=== PATIENT | female | born 1995 | race African-American/Black ===

== ENCOUNTER 2018-03-03 13:45 | Emergency (ER) | payer SELFPAY ==
--- NOTE | 2018-03-03 14:55 | ER ---
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 I don't remember hurting it but it started swelling when I got off work and it really hurts." Slight swelling noted to R ankle, pt ambulatory. Transition of care: patient was not received from another setting of care. Onset of symptoms was March 03, 2018. Risk Assessment: Do you want to hurt yourself or someone else? Patient reports no desire to harm self or others. Initial Sepsis Screen: Does the patient meet any 2 criteria? No. Patient's initial sepsis screen is negative. Does the patient have a suspected source of infection? No. Patient's initial sepsis screen is negative. Care prior to arrival: None. 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 - Social history:: Smoking status: Patient/guardian denies using tobacco. - Ebola Screening: : No symptoms or risks identified at this time. Vital Signs: 13:56 BP 125 / 70; Pulse 97; Resp 18; Temp 97.9; Pulse Ox 100% on R/A; Weight 67.13 kg; ph Height 5 ft. 7 in. (170.18 cm); Pain 7/10; 13:56 Body Mass Index 23.18 (67.13 kg, 170.18 cm) ph ED Course: 13:49 Patient arrived in ED. mr 13:50 Mesha Ovalle FNP-C [facility]. kb 13:50 Michele Coulter MD is Attending Physician. kb 13:51 Belkis Bowser, RN is Primary Nurse. ph 13:56 Triage completed. ph 13:57 Arm band placed on Patient placed in an exam room. ph Administered Medications: No medications were administered Outcome: 14:55 Patient left the ED. kb Signatures: Mesha Ovalle, GAS OPERATOR-C GAS OPERATOR-Sola Darnell mr Belkis Bowser, RN RN ph
--- NOTE | 2018-03-03 14:56 | EDPHYS ---
Physician Documentation [facility] Name: Princess Alcala Age: 22 yrs Sex: Female : 1995 Arrival Date: 03/03/2018 Time: 13:49 Bed 11 Private MD: ED Physician Michele Coulter HPI: 03/03 14:08 This 22 yrs old Black Female presents to ER via Ambulatory with complaints of Ankle kb Injury. 14:08 The patient presents with pain, that is acute. The complaints affect the right ankle. kb Onset: The symptoms/episode began/occurred last night. Context: The problem was sustained at home, resulted from an unknown cause, The mechanism of injury is unknown. The patient can fully bear weight on the affected extremity. the patient is able to ambulate. Associated signs and symptoms: Pertinent positives: swelling, Pertinent negatives: calf tenderness, fever, nausea, numbness, rash, tingling, vomiting, warmth, weakness. Modifying factors: The symptoms are alleviated by nothing, the symptoms are aggravated by weight bearing. Severity of symptoms: At their worst the symptoms were mild, in the emergency department the symptoms are unchanged. The patient has not experienced similar symptoms in the past. The patient has not recently seen a physician. 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 Reports swelling last night, resolved this morning. Pain better this morning as well. . 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 - Social history:: Smoking status: Patient/guardian denies using tobacco. - Ebola Screening: : No symptoms or risks identified at this time. ROS: 14:14 Constitutional: Negative for fever, chills, and weight loss, Neck: Negative for injury, kb pain, and swelling, Cardiovascular: Negative for chest pain, palpitations, and edema, Respiratory: Negative for shortness of breath, cough, wheezing, and pleuritic chest pain, Abdomen/GI: Negative for abdominal pain, nausea, vomiting, diarrhea, and constipation, Back: Negative for injury and pain, Skin: Negative for injury, rash, and discoloration, Neuro: Negative for headache, weakness, numbness, tingling, and seizure. 14:14 MS/extremity: Positive for pain. Exam: 14:14 Constitutional: This is a well developed, well nourished patient who is awake, alert, kb and in no acute distress. Head/Face: Normocephalic, atraumatic. Chest/axilla: Normal chest wall appearance and motion. Nontender with no deformity. No lesions are appreciated. Cardiovascular: Regular rate and rhythm with a normal S1 and S2. No gallops, murmurs, or rubs. Normal PMI, no JVD. No pulse deficits. Respiratory: Lungs have equal breath sounds bilaterally, clear to auscultation and percussion. No rales, rhonchi or wheezes noted. No increased work of breathing, no retractions or nasal flaring. Abdomen/GI: Soft, non-tender, with normal bowel sounds. No distension or tympany. No guarding or rebound. No evidence of tenderness throughout. Skin: Warm, dry with normal turgor. Normal color with no rashes, no lesions, and no evidence of cellulitis. Neuro: Awake and alert, GCS 15, oriented to person, place, time, and situation. Cranial nerves II-XII grossly intact. Motor strength 5/5 in all extremities. Sensory grossly intact. Cerebellar exam normal. Normal gait. 14:14 Musculoskeletal/extremity: Extremities: grossly normal except: noted in the anterior aspect of right ankle: pain, ROM: intact in all extremities, Circulation is intact in all extremities. Sensation intact. Weight bearing: able to fully bear weight. Vital Signs: 13:56 BP 125 / 70; Pulse 97; Resp 18; Temp 97.9; Pulse Ox 100% on R/A; Weight 67.13 kg; ph Height 5 ft. 7 in. (170.18 cm); Pain 7/10; 13:56 Body Mass Index 23.18 (67.13 kg, 170.18 cm) ph MDM: 13:55 Patient medically screened. kb 14:15 Data reviewed: vital signs, nurses notes. Data interpreted: Pulse oximetry: on room air kb is 100 %. Interpretation: normal. 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 kb "I'm just gonna go because I've been in there for like 40 minutes and nothing has happened." Educated that x-rays will be done as soon as possible, but pt states she is leaving. . Administered Medications: No medications were administered Disposition: 03/03/18 14:55 Patient left the facility after being seen by provider. Preliminary diagnosis is Pain in right ankle and joints of right foot. - Patient left due to (see nurse's notes). - Condition is Stable. Addendum: 03/07/2018 08:59 Co-signature as Attending Physician, Michele Coulter MD I agree with the assessment and c wallis plan of care. Signatures: Dispatcher [employer] EDMesha Hicks, STEERSMAN-C STEERSMAN-Michele Cotto MD MD cha Hall, Patricia, RN RN ph Corrections: (The following items were deleted from the chart) 03/03 14:54 14:15 Counseling: I had a detailed discussion with the patient and/or guardian kb regarding: the historical points, exam findings, and any diagnostic results supporting the discharge/admit diagnosis, radiology results, the need for outpatient follow up, a family practitioner, to return to the emergency department if symptoms worsen or persist or if there are any questions or concerns that arise at home, kb 14:55 14:55 03/03/2018 14:55 Patient left the facility after being seen by provider. kb Preliminary diagnosis is Pain in right ankle and joints of right foot. Reason stated they are leaving due to (see nurse's notes). Condition is Stable. kb
[2018-03-03 14:59] VITALS: BP 125/70; TEMP 97.9; O2SAT 100
== END 2018-03-03 14:55 | disposition left against medical advice (07) ==
LOC: ER 13:45
DX: M25.571 Pain in right ankle and joints of right foot (principal); J45.909 Unspecified asthma, uncomplicated; Z88.5 Allergy status to narcotic agent
CPT/HCPCS: 99281

== ENCOUNTER 2019-07-03 18:59 | Emergency (ER) | payer OTHER, SELFPAY ==
--- NOTE | 2019-07-03 20:29 | ER ---
Nurse's Notes [facility] Name: Princess Alcala Age: 23 yrs Sex: Female : 1995 Arrival Date: 07/03/2019 Time: 19:21 Bed Waiting Private MD: Diagnosis: ED Course: 07/03 19:21 Patient arrived in ED. mr 19:30 Patient's name was called from ER lobby. No response. lp1 20:00 Patient's name was called from ER lobby. No response. lp1 Administered Medications: No medications were administered Outcome: 20:28 Patient left the ED. lp1 Signatures: Jeanna Nugent Laura RN RN lp1
== END 2019-07-03 20:28 | disposition left against medical advice (07) ==
LOC: ER 18:59
DX: Z02.9 Encounter for administrative examinations, unspecified (principal)